=== PATIENT | female | born 1995 | race African-American/Black ===

== ENCOUNTER 2018-10-22 13:38 | Emergency (ER) | payer SELFPAY ==
[~2018-10-22] VITALS: Ht 170.2 cm; Wt 53.7 kg
[2018-10-22 13:38] VITALS: BP 128/79
[~2018-10-22 13:38] MED LIST: ONDA4TAB10 SL; PNV1TABL25 PO
[2018-10-22] MEDS ORDERED: AMOX1TAB61 PO (14:30)
--- NOTE | 2018-10-22 14:30 | PHYS DOC ---
Past History Past Medical History: No Pertinent History Past Surgical History: No Surgical History Smoking: Cigarettes Alcohol Use: Occasionally Drug Use: Marijuana Adult General Chief Complaint Chief Complaint: SORE THROAT HPI HPI Patient is a 23-year-old female who presents with complaint of sore throat, co ugh, sinus pain and congestion as well as purulent nasal drainage. Patient states that symptoms have been going on for the last several days and are progressively getting worse. She is not sure whether or not she has been running a fever. She denies any chest pain or shortness of breath. She states that nothing is improving symptoms.[] Review of Systems Review of Systems Constitutional: Denies fever or chills [] HENT: Complains of sinus congestion, purulent nasal drainage and sore throat [] Respiratory: Complains of cough without shortness of breath [] Cardiovascular: No additional information not addressed in HPI [] Integument: Denies rash or skin lesions [] Allergies Allergies Allergies Coded Allergies Type Severity Reaction Last Updated Verified No Known Drug Allergies 11/29/13 No Physical Exam Physical Exam Constitutional: Well developed, well nourished, no acute distress, non-toxic appearance. [] HENT: Normocephalic, atraumatic, both frontal and maxillary sinuses are tender to palpation and percussion, oropharynx moist. [] Neck: Normal range of motion, no tenderness, supple, no stridor. [] Cardiovascular: Regular rate and rhythm[] Lungs & Thorax: Bilateral breath sounds clear to auscultation [] Extremities: No tenderness, no cyanosis, no clubbing, ROM intact, no edema. [] Current Patient Data Vital Signs Vital Signs Date Time Temp Pulse Resp B/P (MAP) Pulse Ox O2 Delivery O2 Flow Rate FiO2 10/22/18 13:38 98.7 85 28 100 Room Air EKG EKG [] Radiology/Procedures Radiology/Procedures [] Course & Med Decision Making Course & Med Decision Making Pertinent Labs and Imaging studies reviewed. (See chart for details) [] Dragon Disclaimer Dragon Disclaimer This electronic medical record was generated, in whole or in part, using a voice recognition dictation system. Departure Departure: Impression: Primary Impression: Acute sinusitis Disposition: 01 HOME, SELF-CARE Condition: STABLE Referrals: PCP,NO (PCP) Patient Instructions: Form - Excuse from Work, School, or Physical Activity, Sinusitis Scripts Amoxicillin/Potassium Clav (AUGMENTIN 905-125 TABLET) 1 Each Tablet 1 TAB PO BID for INFECTION, #20 TAB Prov: VERONICA TRAYLOR Jr., DO 10/22/18 Problem Qualifiers Primary Impression: Acute sinusitis Sinusitis location: unspecified location Recurrence: not specified as recurrent Qualified Codes: J01.90 - Acute sinusitis, unspecified VERONICA TRAYLOR Jr., DO Oct 22, 2018 14:30
[2018-10-22] MEDS ORDERED: AMOXICILLIN/K CLAV 875/125MG TABLET. PO ONE (14:55)
== END 2018-10-22 14:47 | disposition home or self-care (01) ==
LOC: ER 13:38
DX: J01.90 Acute sinusitis, unspecified (principal); F17.210 Nicotine dependence, cigarettes, uncomplicated
CPT/HCPCS: 87070; 87880; 99283

== ENCOUNTER 2020-03-01 00:55 | Emergency (ER) | payer SELFPAY ==
[~2020-03-01] VITALS: Ht 170.2 cm; Wt 53.7 kg
[~2020-03-01 00:55] MED LIST changes: +AMOX1TAB61 PO
[2020-03-01 01:12] VITALS: BP 129/89
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
[2020-03-01] MEDS ORDERED: ACETAMINOPHEN 500 MG TABLET PO ONE (01:30)
--- NOTE | 2020-03-01 01:53 | RAD ---
INDICATION: Trauma COMPARISON: None. IMPRESSION: Facial bones: 3 views obtained. Frontal and maxillary sinuses appear largely aerated. A definite disp laced fracture is not seen within the limits of plain film. Electronically signed by: Donnie Perez MD (03/01/2020 1:51 AM) [id number]
== END 2020-03-01 02:15 | disposition home or self-care (01) ==
LOC: ER 00:55 → EEVIPCON 00:55 → ER 02:15
DX: S05.42XA Penetrating wound of orbit with or without foreign body, left eye, initial encounter (principal); F17.210 Nicotine dependence, cigarettes, uncomplicated; F12.90 Cannabis use, unspecified, uncomplicated; Y08.89XA Assault by other specified means, initial encounter; Y93.89 Activity, other specified; Y92.89 Other specified places as the place of occurrence of the external cause; Y99.8 Other external cause status
CPT/HCPCS: 12011; 70150; 81025; 99283

== ENCOUNTER → 2020-11-13 | Emergency (ER) | payer OTHER ==
[~2020-11-13] VITALS: Ht 170.2 cm; Wt 53.3 kg
[~2020-11-13] MED LIST changes: +HYDROcodone/APAP 5/325MG 1 TAB TABLET PO ONE
--- NOTE | 2020-11-13 10:57 | PHYS DOC ---
Past History Past Medical History: No Pertinent History (CHRISTIAN ATKINS WILDLIFE TECHNICIAN) Past Surgical History: No Surgical History (CHRISTIAN ATKINS WILDLIFE TECHNICIAN) Smoking: Cigarettes Alcohol Use: None Drug Use: Marijuana Social History Narrative: last noc (CHRISTIAN ATKINS APRN) Adult General Chief Complaint Chief Complaint: VAGINAL BLEEDING HPI HPI Patient is a 25-year-old female who presents to the emergency department complaining of brown spotting vaginally on pad she noticed this morning. Millie ricks reports last menstrual cycle of September 13 with normal duration of flow, missed October menstrual cycle. Took a home test on October 28, 2020 and noticed a very light line that confirmed , contacted DRAINAGE INSPECTOR in [facility] for an appointment, was told to call back and make an appointment at the end of November. Patient has been 3 times in the past, has 2 living children, reports her last ended in miscarriage at 7 months gestation. Patient reports this is her normal time to start her menstrual cycle. Patient reports intermittent mild pelvic cramping consistent with her normal menstrual cramps. Patient denies bright red vaginal bleeding. Patient states when she wiped this morning after urinating she noticed light pink tinge on the paper and placed a feminine hygiene pad in which she later noticed light brown spotting. Patient is concerned that she might not be and did not read her home test correctly. Patient denies vaginal discharge, vaginal lesions, rashes to her vagina area, denies STI concerns. Denies nausea, vomiting, diarrhea, or abdominal pain at this time. Patient reports she is not having any bleeding or any vaginal or lower abdominal symptoms at this time. Patient denies recent fever or chills. Denies other physical complaints or physical concerns. (CHRISTIAN ATKINS WILDLIFE TECHNICIAN) Review of Systems Review of Systems 14 body systems of review of systems have been reviewed. See HPI for pertinent positives and negative responses, otherwise all other systems are negative, nonpertinent or noncontributory. Constitutional: Negative except as outlined in HPI above. Skin: Negative except as outlined in HPI above. Eyes: Negative except as outlined in HPI above. HENT: Negative except as outlined in HPI above. Respiratory: Negative except as outlined in HPI above. Cardiovascular: Negative except as outlined in HPI above. GI: Negative except as outlined in HPI above. : Negative except as outlined in HPI above. Musculoskeletal: Negative except as outlined in HPI above. Integument: Negative except as outlined in HPI above. Neurologic: Negative except as outlined in HPI above. Endocrine: Negative except as outlined in HPI above. Lymphatic: Negative except as outlined in HPI above. Psychiatric: Negative except as outlined in HPI above. (CHRISTIAN ATKINS APRN) Current Medications Current Medications Current Medications Medications (Trade) Dose Ordered Sig/Smiley Start Time Stop Time Status Last Admin Dose Admin Acetaminophen/ Hydrocodone Bitart (Lortab 5/325) 1 tab 1X ONCE 11/13/20 10:30 11/13/20 10:28 DC (CHRISTIAN ATKINS APRN) Allergies Allergies Allergies Coded Allergies Type Severity Reaction Last Updated Verified No Known Drug Allergies 11/13/20 No (CHRISTIAN ATKINS APRN) Physical Exam Physical Exam Constitutional: Well developed, well nourished, no acute distress, non-toxic appearance. 25-year-old female in no apparent distress. HENT: Normocephalic, atraumatic. Eyes: Conjunctiva normal, no discharge. Neck: Normal range of motion. Cardiovascular: Distal cap refill less than 2 seconds, no cyanosis appreciated. Lungs & Thorax: Patient is in no respiratory distress, no adventitious lung sounds appreciated. Abdomen: Bowel sounds normal, soft, no tenderness, no masses, no pulsatile masses. No bruising or skin discoloration of the abdomen. Skin: Warm, dry, no erythema, no rash. Back: No tenderness, no CVA tenderness. Extremities: No tenderness, no cyanosis, no clubbing, ROM intact, no edema. Neurologic: Alert and oriented X 3, normal motor function, normal sensory function, no focal deficits noted. Psychologic: Affect normal, judgement normal, mood normal. : examination deferred at this time related to patient reporting no vaginal bleeding or vaginal discharge or pelvic pain or other pelvic complaints at this time, will defer until confirmation of , urinalysis assay. (CHRISTIAN ATKINS APRN) Current Patient Data Vital Signs Vital Signs Date Time Temp Pulse Resp B/P (MAP) Pulse Ox O2 Delivery O2 Flow Rate FiO2 11/13/20 09:49 98.3 64 18 120/63 100 Room Air Lab Results Laboratory Tests Test 11/13/20 10:15 POC Urine HCG, Qualitative hcg negative (Negative) (CHRISTIAN ATKINS APRN) EKG EKG [] (CHRISTIAN ATKINS APRN) Radiology/Procedures Radiology/Procedures [] (CHRISTIAN ATKINS APRN) Heart Score C/O Chest Pain: No Risk Factors: Risk Factors: DM, Current or recent (<one month) smoker, HTN, HLP, family history of CAD, obesity. Risk Scores: Risk Factors: DM, Current or recent (<one month) smoker, HTN, HLP, family history of CAD, obesity. (CHRISTIAN ATKINS APRN) Course & Med Decision Making Course & Med Decision Making Pertinent Labs and Imaging studies reviewed. (See chart for details) 25-year-old female, vital signs reviewed, presents emergency department concerning vaginal bleeding with . Physical examination is unremarkable, after extensive detail interview of events, will order urinalysis assay and urine test to confirm prior to proceeding with further testing. Patient is amenable to ED planning. The patient is not per POC urine test. Awaiting urinalysis assay results at this time. Working diagnosis most likely normal menses versus abnormal cycles. Patient urine is not infected, discussed findings with patient, discussed abnormal menses with patient, follow-up with INSTRUMENT MAINTENANCE SUPERVISOR specialty soon, patient is amenable to ED discharge planning. Discussed with the patient all findings and diagnostic testing as well as the need to follow-up with their primary care provider for further evaluation and treatment or return to the ED if any new or worsening symptoms. Strict return precautions were also discussed at length, the patient voiced understanding and agreement with the discharge planning. The patient was nontoxic in appearance, in no apparent distress, and hemodynamically stable at the time of disposition. (CHRISTIAN ATKINS APRN) Dragon Disclaimer Dragon Disclaimer This electronic medical record was generated, in whole or in part, using a voice recognition dictation system. (CHRISTIAN ATKINS APRN) Attending Co-Sign The patient was seen and interviewed as well as examined at the bedside. The chart was reviewed. The case was discussed. Agree with the plan of care. The patient's chart at time of signing states that she has . This is not accurate. The patient was discharged in good condition. (LEÓN KELSEY DO) Departure Departure: Impression: Primary Impression: Abnormal menstrual cycle Disposition: HOME / SELF CARE / HOMELESS Condition: GOOD Referrals: PCP,NO (PCP) Patient Instructions: Abnormal Uterine Bleeding Additional Instructions: You were seen today in the emergency department concerning vaginal spotting during . Your urine test was negative. You are not . I suspect your symptoms are related to an abnormal uterine bleeding. There are times when a period can be missed without apparent cause, please follow-up with your DRAINAGE INSPECTOR for ongoing abnormal periods. Please return to the emergency department for worsening symptoms or other concerns. You do have a urine test pending in the lab, if there are any concerning findings I will call you on the number you left with the office automation clerk. Thank you for visiting our Emergency Department. It was a pleasure taking care of you today in the emergency department and we appreciate you trusting us with your care. If any additional problems come up don't hesitate to return to visit us. Please follow up with your primary care provider so they can plan additional care if needed and know about the problem that you had. If symptoms worsen come back to the Emergency Department. Any concerning symptoms that start such as chest pain, shortness of air, weakness or numbness on one side of the body, running high fevers or any other concerning symptoms return to the ER. CHRISTIAN ATKINS APRN Nov 13, 2020 10:57 LEÓN KELSEY DO Nov 14, 2020 06:06
[2020-11-13 11:34] VITALS: BP 136/66
[2020-11-13 11:55] LABS: BACTERIA,URINE 0 /HPF (0-FEW); BILIRUBIN,URINE NEG (NEG); CLARITY,URINE CLEAR; COLOR,URINE YELLOW; GLUCOSE,URINE NEG (NEG); NITRITE,URINE NEG (NEG); SQUAMOUS EPITHELIAL CELL,UR MANY /LPF; UROBILINOGEN,URINE 0.2 mg/dL (0.2 mg/dL)
== END | disposition home or self-care (01) ==
LOC: ER 09:39
DX: N92.1 Excessive and frequent menstruation with irregular cycle (principal); F17.210 Nicotine dependence, cigarettes, uncomplicated
CPT/HCPCS: 81001; 81025; 87086; 99283

== ENCOUNTER 2021-05-21 14:30 | Emergency (ER) | payer OTHER ==
[~2021-05-21] VITALS: Ht 170.2 cm; Wt 53.7 kg
[~2021-05-21 14:30] MED LIST changes: -HYDROcodone/APAP 5/325MG 1 TAB TABLET PO ONE
[2021-05-21] MEDS ORDERED: IV NORMAL SALINE 1,000ML 1,000 ML IV ONE (14:45)
[2021-05-21] MEDS ORDERED: ONDANSETRON PF 4 MG/2 ML VIAL. IVP ONE (14:45)
[2021-05-21 15:47] LABS: BASO % 0 % (0-3); EOS # 0.1 x10^3/uL (0.0-0.7); EOS % 1 % (0-3); HEMATOCRIT 37.8 % (36.0-47.0); HEMOGLOBIN 13.1 g/dL (12.0-15.5); LYMPH # 1.2 x10^3/uL (1.0-4.8); LYMPH % 13 % (24-48); MEAN CORPUSCULAR HEMOGLOBIN 33 pg (25-35); MEAN CORPUSCULAR HGB CONC 35 g/dL (31-37); MEAN CORPUSCULAR VOLUME 95 fL (79-100); MONO # 0.7 x10^3/uL (0.0-1.1); MONO % 7 % (0-9); NEUT # 7.3 x10^3uL (1.8-7.7); NEUT % 78 % (31-73); PLATELET COUNT 238 x10^3/uL (140-400); RED BLOOD COUNT 3.96 x10^6/uL (3.50-5.40); RED CELL DISTRIBUTION WIDTH 13.1 % (11.5-14.5); WHITE BLOOD COUNT 9.3 x10^3/uL (4.0-11.0)
[2021-05-21 15:51] LABS: CREATININE 0.8 mg/dL (0.6-1.0); GFR 104.9; POTASSIUM 3.8 mmol/L (3.5-5.1)
[2021-05-21 15:55] LABS: BARBITURATES NEG (NEG); BENZODIAZEPINES NEG (NEG); CANNABINOIDS POS (NEG); COCAINE NEG (NEG); METHADONE NEG (NEG); OPIATES NEG (NEG); PHENCYCLIDINE NEG (NEG)
[2021-05-21 15:56] LABS: AMPHETAMINE/METHAMPHETAMINE NEG (NEG)
[2021-05-21 15:56] LABS: ALBUMIN/GLOBULIN RATIO 1.3 (1.0-1.7); TOTAL BILIRUBIN 0.5 mg/dL (0.2-1.0); TOTAL PROTEIN 7.1 g/dL (6.4-8.2)
[2021-05-21 16:02] LABS: BACTERIA,URINE FEW /HPF (0-FEW); CLARITY,URINE HAZY; COLOR,URINE YELLOW; GLUCOSE,URINE NEG (NEG); NITRITE,URINE NEG (NEG); RBC,URINE 20-40 /HPF (0-2); SQUAMOUS EPITHELIAL CELL,UR MOD /LPF
[2021-05-21] MEDS ORDERED: ONDA4TAB12 PO (16:14)
--- NOTE | 2021-05-21 16:14 | PHYS DOC ---
Past History Past Medical History: No Pertinent History Past Surgical History: No Surgical History Smoking: Cigarettes Alcohol Use: None Drug Use: Marijuana General Adult EDM: Chief Complaint: VOMITING IN HPI: HPI: 26-year-old female who is 6 weeks presents with vomiting and diarrhea. She has had vomiting diarrhea for several days. She states that she tends to take 4 naps a day and each time she wakes up she has to vomit diarrhea. She does not have an OB appointment for at least several more days and decided she should come in for evaluation. She is able to eat and drink between episodes. She has not started her prenatals yet. She denies fever or chills. Review of Systems: Review of Systems: Constitutional: Denies fever or chills Eyes: Denies change in visual acuity HENT: Denies nasal congestion or sore throat Respiratory: Denies cough or shortness of breath Cardiovascular: Denies chest pain or edema GI: Nausea, vomiting, diarrhea. : Denies dysuria Musculoskeletal: Denies back pain or joint pain Integument: Denies rash Neurologic: Denies headache, focal weakness or sensory changes Endocrine: Denies polyuria or polydipsia Lymphatic: Denies swollen glands Psychiatric: Denies depression or anxiety Current Medications: Current Meds: Current Medications Medications (Trade) Dose Ordered Sig/Smiley Start Time Stop Time Status Last Admin Dose Admin Diphenhydramine HCl (Benadryl) 25 mg 1X ONCE 05/21/21 16:15 05/21/21 16:16 Ondansetron HCl (Zofran) 4 mg 1X ONCE 05/21/21 14:45 05/21/21 14:59 DC 05/21/21 15:25 4 MG Sodium Chloride 1,000 ml @ 1,000 mls/hr 1X ONCE 05/21/21 14:45 05/21/21 15:44 DC 05/21/21 15:26 1,000 MLS/HR Allergies: Allergies: Allergies Coded Allergies Type Severity Reaction Last Updated Verified No Known Drug Allergies 11/13/20 No Physical Exam: PE: Constitutional: Well developed, well nourished, no acute distress, non-toxic appearance. [] HENT: Normocephalic, atraumatic, bilateral external ears normal, oropharynx moist, no oral exudates, nose normal. [] Eyes: PERRLA, EOMI, conjunctiva normal, no discharge. [] Neck: Normal range of motion, no tenderness, supple, no stridor. [] Cardiovascular: Heart rate regular rhythm, no murmur [] Lungs & Thorax: Bilateral breath sounds clear to auscultation [] Abdomen: Bowel sounds normal, soft, no tenderness, no masses, no pulsatile masses. [] Skin: Warm, dry, no erythema, no rash. [] Back: No tenderness, no CVA tenderness. [] Extremities: No tenderness, no cyanosis, no clubbing, ROM intact, no edema. [] Neurologic: Alert and oriented X 3, normal motor function, normal sensory function, no focal deficits noted. [] Psychologic: Affect normal, judgement normal, mood normal. [] Current Patient Data: Labs: Laboratory Tests Test 05/21/21 15:15 05/21/21 15:25 Urine Collection Type Unknown Urine Color Yellow Urine Clarity Hazy Urine pH 7.0 Urine Specific [place] >=1.030 Urine Protein 100 mg/dl (NEG-TRACE) Urine Glucose (UA) Neg mg/dL (NEG) Urine Ketones (Stick) 40 mg/dL (NEG) Urine Blood Mod (NEG) Urine Nitrite Neg (NEG) Urine Bilirubin Small (NEG) Urine Urobilinogen Dipstick 1.0 mg/dL (0.2 mg/dL) Urine Leukocyte Esterase Trace (NEG) Urine RBC 20-40 /HPF (0-2) Urine WBC 5-10 /HPF (0-4) Urine Squamous Epithelial Cells Mod /LPF Urine Bacteria Few /HPF (0-FEW) Urine Mucus Mod /LPF Urine Opiates Screen Neg (NEG) Urine Methadone Screen Neg (NEG) Urine Barbiturates Neg (NEG) Urine Phencyclidine Screen Neg (NEG) Urine Amphetamine/Methamphetamine Neg (NEG) Urine Benzodiazepines Screen Neg (NEG) Urine Cocaine Screen Neg (NEG) Urine Cannabinoids Screen Pos (NEG) Urine Ethyl Alcohol Neg (NEG) White Blood Count 9.3 x10^3/uL (4.0-11.0) Red Blood Count 3.96 x10^6/uL (3.50-5.40) Hemoglobin 13.1 g/dL (12.0-15.5) Hematocrit 37.8 % (36.0-47.0) Mean Corpuscular Volume 95 fL (79-100) Mean Corpuscular Hemoglobin 33 pg (25-35) Mean Corpuscular Hemoglobin Concent 35 g/dL (31-37) Red Cell Distribution Width 13.1 % (11.5-14.5) Platelet Count 238 x10^3/uL (140-400) Neutrophils (%) (Auto) 78 % (31-73) H Lymphocytes (%) (Auto) 13 % (24-48) L Monocytes (%) (Auto) 7 % (0-9) Eosinophils (%) (Auto) 1 % (0-3) Basophils (%) (Auto) 0 % (0-3) Neutrophils # (Auto) 7.3 x10^3uL (1.8-7.7) Lymphocytes # (Auto) 1.2 x10^3/uL (1.0-4.8) Monocytes # (Auto) 0.7 x10^3/uL (0.0-1.1) Eosinophils # (Auto) 0.1 x10^3/uL (0.0-0.7) Basophils # (Auto) 0.0 x10^3/uL (0.0-0.2) POC Urine HCG, Qualitative hcg positive (Negative) Sodium Level 134 mmol/L (136-145) L Potassium Level 3.8 mmol/L (3.5-5.1) Chloride Level 102 mmol/L (98-107) Carbon Dioxide Level 26 mmol/L (21-32) Anion Gap 6 (6-14) Blood Urea Nitrogen 11 mg/dL (7-20) Creatinine 0.8 mg/dL (0.6-1.0) Estimated GFR (Cockcroft-Gault) 104.9 BUN/Creatinine Ratio 14 (6-20) Glucose Level 84 mg/dL (70-99) Calcium Level 9.0 mg/dL (8.5-10.1) Total Bilirubin 0.5 mg/dL (0.2-1.0) Aspartate Amino Transferase (AST) 14 U/L (15-37) L Alanine Aminotransferase (ALT) 17 U/L (14-59) Alkaline Phosphatase 59 U/L (46-116) Total Protein 7.1 g/dL (6.4-8.2) Albumin 4.0 g/dL (3.4-5.0) Albumin/Globulin Ratio 1.3 (1.0-1.7) Vital Signs: Vital Signs Date Time Temp Pulse Resp B/P (MAP) Pulse Ox O2 Delivery O2 Flow Rate FiO2 05/21/21 14:56 98.4 66 18 122/68 (86) 100 EKG: EKG: [] Radiology/Procedures: Radiology/Procedures: [] Heart Score: C/O Chest Pain: N/A Risk Factors: Risk Factors: DM, Current or recent (<one month) smoker, HTN, HLP, family history of CAD, obesity. Risk Scores: Score 0 - 3: 2.5% MACE over next 6 weeks - Discharge Home Score 4 - 6: 20.3% MACE over next 6 weeks - Admit for Clinical Observation Score 7 - 10: 72.7% MACE over next 6 weeks - Early Invasive Strategies Course & Med Decision Making: Course & Med Decision Making Pertinent Labs and Imaging studies reviewed. (See chart for details) The patient has been given a liter normal saline and 4 mg of Zofran. She still a bit nauseous I will add 25 mg of Benadryl. I have encouraged her to keep her OB appointment as soon as possible. The patient is positive for marijuana. This certainly could be contributing to her vomiting. I have told the patient she needs to stop using. The patient's urinalysis is borderline for infection. I will treat her with Keflex for 3 days. She is stable for discharge at this time. [] Franklin Disclaimer: Franklin Disclaimer: This electronic medical record was generated, in whole or in part, using a voice recognition dictation system. Departure Departure: Impression: Primary Impression: Vomiting affecting Additional Impression: UTI (urinary tract infection) Qualified Codes: N30.01 - Acute cystitis with hematuria Disposition: HOME / SELF CARE / HOMELESS Condition: STABLE Referrals: PCP,NO (PCP) Patient Instructions: - Second Trimester, [id number], - Urinary Tract Infection Scripts Cephalexin (CEPHALEXIN) 500 Mg Tablet 1 TAB PO TID for UTI for 3 Days, #9 TAB Prov: LEÓN KELSEY DO 05/21/21 Ondansetron (ONDANSETRON ODT) 4 Mg Tab.rapdis 1 TAB PO PRN Q6-8HRS PRN for VOMITING, #16 TAB Prov: LEÓN KELSEY DO 05/21/21 LEÓN KELSEY DO May 21, 2021 16:14
[2021-05-21] MEDS ORDERED: diphenhydrAMINE 50 MG/ML VIAL IVP ONE (16:15)
[2021-05-21 16:57] VITALS: BP 110/52
[2021-05-21] MEDS ORDERED: CEPH500T PO (17:07)
[2021-05-21] MEDS ORDERED: CEPHALEXIN 250 MG CAPSULE PO ONE (17:15)
== END 2021-05-21 17:12 | disposition home or self-care (01) ==
LOC: ER 14:30
DX: O23.41 Unspecified infection of urinary tract in pregnancy, first trimester (principal); N39.0 Urinary tract infection, site not specified; O21.9 Vomiting of pregnancy, unspecified; O99.331 Smoking (tobacco) complicating pregnancy, first trimester; Z3A.01 Less than 8 weeks gestation of pregnancy
CPT/HCPCS: 36415; 80053; 80307; 81001; 81025; 85025; 87086; 96361; 96374; 96375; 99284; J1200; J2405; J7030

== ENCOUNTER 2021-05-26 10:23 | Emergency (ER) | payer OTHER ==
[~2021-05-26] VITALS: Ht 170.2 cm; Wt 53.7 kg
[~2021-05-26 10:23] MED LIST changes: +CEPH500T PO; +ONDA4TAB12 PO
[2021-05-26] MEDS ORDERED: ONDANSETRON PF 4 MG/2 ML VIAL. IVP ONE ×2 (11:00→13:00)
[2021-05-26] MEDS ORDERED: IV NORMAL SALINE 1,000ML 1,000 ML IV SCH (11:00)
--- NOTE | 2021-05-26 11:13 | PHYS DOC ---
Past History Past Medical History: No Pertinent History (TANIA FERRER APRN) Past Surgical History: No Surgical History (TANIA FERRER APRN) Smoking: Cigarettes Alcohol Use: None Drug Use: Marijuana (TANIA FERRER APRN) General Adult EDM: Chief Complaint: NAUSEA/VOMITING/DIARRHEA HPI: HPI: Patient is a 26-year-old female who presents to the emergency department with a 2-week history of nausea, vomiting and diarrhea. Patient was seen in this emergency department on May 21 and diagnosed with a urinary tract infection and discharged home with an antibiotic and nausea medication. She is reports that she has been taking Zofran at home without any relief in her vomiting. Patient states that she finished her antibiotic today. Patient is still reporting dysuria. She is also complaining of suprapubic pain. Patient is approximately 7 weeks . Last menstrual period was April 06. Patient has no OB care yet. She is . Patient denies any blood in her stools or vomit, vaginal bleeding, vaginal discharge, sick exposures, fevers. (TANIA FERRER APRN) Review of Systems: Review of Systems: Constitutional: See HPI GI: See HPI : See HPI (TANIA FERRER APRN) Current Medications: Current Meds: Current Medications Medications (Trade) Dose Ordered Sig/Smiley Start Time Stop Time Status Last Admin Dose Admin Ondansetron HCl (Zofran) 4 mg 1X ONCE 05/26/21 11:00 05/26/21 11:10 DC Sodium Chloride 1,000 ml @ 1,000 mls/hr Q1H 05/26/21 11:00 05/26/21 11:59 (TANIA FERRER APRN) Allergies: Allergies: Allergies Coded Allergies Type Severity Reaction Last Updated Verified No Known Drug Allergies 11/13/20 No (TANIA FERRER APRN) Physical Exam: PE: Constitutional: Well developed, well nourished, no acute distress, non-toxic appearance. [] HENT: Normocephalic, atraumatic, bilateral external ears normal, oropharynx moist, no oral exudates, nose normal. [] Eyes: PERRL, EOMI, conjunctiva normal, no discharge. [] Neck: Normal range of motion, no stridor Cardiovascular:Heart rate regular rhythm, no murmur [] Lungs & Thorax: Bilateral breath sounds clear to auscultation [] Abdomen: Bowel sounds normal, soft, suprapubic tenderness with palpation, no abdominal guarding or rigidity, no masses, no pulsatile masses. [] Skin: Warm, dry, no erythema, no rash. [] Back: No tenderness, no CVA tenderness. [] Extremities: No tenderness, no cyanosis, no clubbing, ROM intact, no edema. [] Neurologic: Alert and oriented X 3, normal motor function, normal sensory function, no focal deficits noted. [] Psychologic: Affect normal, judgement normal, mood normal. [] (TANIA FERRER APRN) Current Patient Data: Labs: Laboratory Tests Test 05/26/21 10:52 White Blood Count 7.7 x10^3/uL Red Blood Count 4.23 x10^6/uL Hemoglobin 13.7 g/dL Hematocrit 40.1 % Mean Corpuscular Volume 95 fL Mean Corpuscular Hemoglobin 33 pg Mean Corpuscular Hemoglobin Concent 34 g/dL Red Cell Distribution Width 13.1 % Platelet Count 255 x10^3/uL Neutrophils (%) (Auto) 75 % Lymphocytes (%) (Auto) 16 % Monocytes (%) (Auto) 7 % Eosinophils (%) (Auto) 1 % Basophils (%) (Auto) 1 % Neutrophils # (Auto) 5.8 x10^3uL Lymphocytes # (Auto) 1.2 x10^3/uL Monocytes # (Auto) 0.5 x10^3/uL Eosinophils # (Auto) 0.1 x10^3/uL Basophils # (Auto) 0.1 x10^3/uL Sodium Level 136 mmol/L Potassium Level 3.4 mmol/L Chloride Level 100 mmol/L Carbon Dioxide Level 26 mmol/L Anion Gap 10 Blood Urea Nitrogen 10 mg/dL Creatinine 0.8 mg/dL Estimated GFR (Cockcroft-Gault) 104.9 BUN/Creatinine Ratio 13 Glucose Level 89 mg/dL Calcium Level 9.1 mg/dL Total Bilirubin 1.0 mg/dL Aspartate Amino Transf (AST/SGOT) 16 U/L Alanine Aminotransferase (ALT/SGPT) 19 U/L Alkaline Phosphatase 60 U/L Total Protein 7.4 g/dL Albumin 4.2 g/dL Albumin/Globulin Ratio 1.3 Lipase 602 U/L Current Medications Medications (Trade) Dose Ordered Sig/Smiley Route PRN Reason Start Time Stop Time Status Last Admin Dose Admin Sodium Chloride 1,000 ml @ 1,000 mls/hr Q1H IV 05/26/21 11:00 05/26/21 11:59 DC 05/26/21 11:15 Ondansetron HCl (Zofran) 4 mg 1X ONCE IVP 05/26/21 11:00 05/26/21 11:10 DC 05/26/21 11:16 Lorazepam (Ativan Inj) 1 mg 1X ONCE IVP 05/26/21 11:45 05/26/21 12:13 DC Vital Signs: Vital Signs Date Time Temp Pulse Resp B/P (MAP) Pulse Ox O2 Delivery O2 Flow Rate FiO2 05/26/21 10:42 98.3 63 16 120/75 (90) 99 Room Air (TANIA FERRER APRN) EKG: EKG: [] (TANIA FERRER APRN) Radiology/Procedures: Radiology/Procedures: []PROCEDURE: ABDOMEN OR LWR BACK LTD INDICATION: Reason: elevated lipase, r/o pancreatitis / Spl. Instructions: / History: COMPARISON: None. TECHNIQUE: Grayscale and color ultrasound images obtained through the abdomen. FINDINGS: Pancreas: Partially seen. A portion of it appears mildly hypoechoic. Liver: Echotexture within normal limits. Gallbladder: No definite stones or wall thickening. Common Bile Duct: Not dilated. Right Kidney: No hydronephrosis. The kidney appears hypervascular. Aorta/IVC: Visualized portion unremarkable. IMPRESSION: * The right kidney appears hypervascular. Would correlate with symptoms to ensure this is not from a pathologic cause such as urinary tract infection. * Portion of the pancreas appears mildly hypoechoic. Causes such as pancr eatitis not excluded. Electronically signed by: Lasha Cordova MD (05/26/2021 12:35 PM) [id number] DICTATED AND SIGNED BY: LASHA CORDOVA MD DATE: 05/26/21 1232 CC: LEÓN KELSEY DO; TANIA FERRER APRN; PCP,NO ~MTH0 0 PROCEDURE: PREG 1ST TRIMESTER EXAM: Obstetrics sonogram. HISTORY: Pain in . TECHNIQUE: Sonographic imaging of the pelvis was performed. COMPARISON: None. FINDINGS: The uterus measures 10.4 x 6.8 x 5.8 cm. The cervix is closed and measures 2.6 cm in length. There is a single intrauterine gestational sac with pole. The crown-rump length is 10 mm, corresponding with a gestational age of 7 weeks and 1 day and due date of 01/11/2022. There is a normal heart rate of 149 bpm. There is a normal-appearing yolk sac. The gestational sac is normal in position and configuration. The ovaries are normal in size and demonstrate normal blood flow. There is a tiny suspected involuting right corpus luteum cyst. There is no pelvic free fluid. IMPRESSION: 1. Single intrauterine fetus with normal heart rate and gestational age based on ultrasound measurements of 7 weeks and 1 day. 2. Tiny suspected involuting left corpus luteum cyst. Electronically signed by: Dunia Vega MD (05/26/2021 11:27 AM) [id number] DICTATED AND SIGNED BY: DUNIA VEGA MD DATE: 05/26/21 1126 CC: TANIA FERRER APRN; PCP,NO ~MTH0 0 (TANIA FERRER APRN) Heart Score: C/O Chest Pain: N/A Risk Factors: Risk Factors: DM, Current or recent (<one month) smoker, HTN, HLP, family history of CAD, obesity. Risk Scores: Score 0 - 3: 2.5% MACE over next 6 weeks - Discharge Home Score 4 - 6: 20.3% MACE over next 6 weeks - Admit for Clinical Observation Score 7 - 10: 72.7% MACE over next 6 weeks - Early Invasive Strategies (TANIA FERRER APRN) Course & Med Decision Making: Course & Med Decision Making Pertinent Labs and Imaging studies reviewed. (See chart for details) [] Patient presents to the emergency department with nausea, vomiting, diarrhea and . She is also reporting dysuria and suprapubic pain. Patient finished her antibiotic today for UTI. Work-up in the emergency department consisted of blood work, urinalysis, UDS, ultrasound. Patient treated with IV fluids, nausea medication. CBC unremarkable. Patient's pelvic ultrasound showed a intrauterine gestation at 7 weeks and 1 day with a heart rate of 149 bpm with good blood flow to bilateral ovaries and an involuting corpus luteum cyst. Is possible that this was the cause of her pain. Patient's lipase is 602. Therefore a ultrasound of her pancreas was performed. Ultrasound of her pancreas shows hypoechoic area on the pancreas and pancreatitis cannot be excluded per the radiologist. I dis cussed this case with supervising physician. Patient will be treated with IV fluids, nausea medication. Patient will need to be admitted for IV fluids and antibiotics. I will transfer this patient to [facility] where they have GI and [facility]. I discussed patient's case with Dr. Baltazar Who agreed to admit the patient under his services. I discussed patient's findings with her and she is agreeable to care plan. [id number] (TANIA FERRER APRN) Dragon Disclaimer: Dragon Disclaimer: This electronic medical record was generated, in whole or in part, using a voice recognition dictation system. (TANIA FERRER APRN) Attending Co-Sign The patient was seen and interviewed as well as examined at the bedside. The chart was reviewed. The case was discussed. Agree with the plan of care. (LEÓN KELSEY DO) Departure Departure: Impression: Primary Impression: Pancreatitis Qualified Codes: K85.90 - Acute pancreatitis without necrosis or infection, unspecified Disposition: 02 SHORT TERM HOSPITAL Condition: GOOD Referrals: PCP,NO (PCP) TANIA FERRER APRN May 26, 2021 11:13 LEÓN KELSEY DO May 28, 2021 09:09
[2021-05-26 11:19] LABS: BASO # 0.1 x10^3/uL (0.0-0.2); BASO % 1 % (0-3); EOS # 0.1 x10^3/uL (0.0-0.7); EOS % 1 % (0-3); HEMATOCRIT 40.1 % (36.0-47.0); HEMOGLOBIN 13.7 g/dL (12.0-15.5); LYMPH # 1.2 x10^3/uL (1.0-4.8); LYMPH % 16 % (24-48); MEAN CORPUSCULAR HEMOGLOBIN 33 pg (25-35); MEAN CORPUSCULAR HGB CONC 34 g/dL (31-37); MEAN CORPUSCULAR VOLUME 95 fL (79-100); MONO # 0.5 x10^3/uL (0.0-1.1); MONO % 7 % (0-9); NEUT # 5.8 x10^3uL (1.8-7.7); NEUT % 75 % (31-73); PLATELET COUNT 255 x10^3/uL (140-400); RED BLOOD COUNT 4.23 x10^6/uL (3.50-5.40); RED CELL DISTRIBUTION WIDTH 13.1 % (11.5-14.5); WHITE BLOOD COUNT 7.7 x10^3/uL (4.0-11.0)
[2021-05-26 11:22] LABS: CALCIUM 9.1 mg/dL (8.5-10.1); CREATININE 0.8 mg/dL (0.6-1.0); GFR 104.9; POTASSIUM 3.4 mmol/L (3.5-5.1)
[2021-05-26 11:29] LABS: ALBUMIN 4.2 g/dL (3.4-5.0); ALBUMIN/GLOBULIN RATIO 1.3 (1.0-1.7); TOTAL PROTEIN 7.4 g/dL (6.4-8.2)
--- NOTE | 2021-05-26 11:30 | RAD ---
EXAM: Obstetrics sonogram. HISTORY: Pain in . TECHNIQUE: Sonographic imaging of the pelvis was performed. COMPARISON: None. FINDINGS: The uterus measures 10.4 x 6.8 x 5.8 cm. The cervix is closed and measures 2.6 cm in length . There is a single intrauterine gestational sac with pole. The crown-rump length is 10 m m, corresponding with a gestational age of 7 weeks and 1 day and due date of 01/11/2022. There is a n ormal heart rate of 149 bpm. There is a normal-appearing yolk sac. The gestational sac is endy l in position and configuration. The ovaries are normal in size and demonstrate normal blood flow. Th ere is a tiny suspected involuting right corpus luteum cyst. There is no pelvic free fluid. IMPRESSION: 1. Single intrauterine fetus with normal heart rate and gestational age based on ultrasound measureme nts of 7 weeks and 1 day. 2. Tiny suspected involuting left corpus luteum cyst. Electronically signed by: Dunia Villareal MD (05/26/2021 11:27 AM) [id number]
--- NOTE | 2021-05-26 12:38 | RAD ---
INDICATION: Reason: elevated lipase, r/o pancreatitis / Spl. Instructions: / History: COMPARISON: None. TECHNIQUE: Grayscale and color ultrasound images obtained through the abdomen. FINDINGS: Pancreas: Partially seen. A portion of it appears mildly hypoechoic. Liver: Echotexture within normal limits. Gallbladder: No definite stones or wall thickening. Common Bile Duct: Not dilated. Right Kidney: No hydronephrosis. The kidney appears hypervascular. Aorta/IVC: Visualized portion unremarkable. IMPRESSION: * The right kidney appears hypervascular. Would correlate with symptoms to ensure this is not from a pathologic cause such as urinary tract infection. * Portion of the pancreas appears mildly hypoechoic. Causes such as pancreatitis not excluded. Electronically signed by: Donnie Perez MD (05/26/2021 12:35 PM) [id number]
[2021-05-26] MEDS ORDERED: PIP/TAZO PER PHARMACY MC PRN (13:00)
[2021-05-26] MEDS ORDERED: IV NORMAL SALINE 1,000ML 1,000 ML IV ONE (13:00)
[2021-05-26 13:01] LABS: BARBITURATES NEG (NEG); BENZODIAZEPINES NEG (NEG); CANNABINOIDS POS (NEG); COCAINE NEG (NEG); METHADONE NEG (NEG); OPIATES NEG (NEG); PHENCYCLIDINE NEG (NEG)
[2021-05-26 13:02] LABS: AMPHETAMINE/METHAMPHETAMINE NEG (NEG)
[2021-05-26 13:08] LABS: BACTERIA,URINE 0 /HPF (0-FEW); CLARITY,URINE TURBID; COLOR,URINE YELLOW; GLUCOSE,URINE NEG (NEG); NITRITE,URINE NEG (NEG); SQUAMOUS EPITHELIAL CELL,UR MOD /LPF; WBC,URINE 20-40 /HPF (0-4)
[2021-05-26] MEDS ORDERED: IV NORMAL SALINE 50ML 50 ML ONE (13:13)
[2021-05-26] MEDS ORDERED: PIPERACILLIN/TAZOBACTAM 3.375 GM VIAL IV ONE (13:14)
[2021-05-26] MEDS ORDERED: PIPERACILLIN/TAZOBACTAM 3.375 GM in IV NORMAL SALINE 50ML 50 ML IV ONE (13:15)
[2021-05-26 15:14] VITALS: BP 105/66
== END 2021-05-26 15:31 | disposition short-term general hospital (02) ==
LOC: ER 10:23
DX: O26.891 Other specified pregnancy related conditions, first trimester (principal); K85.90 Acute pancreatitis without necrosis or infection, unspecified; O99.331 Smoking (tobacco) complicating pregnancy, first trimester; Z20.822 Contact with and (suspected) exposure to COVID-19; Z3A.01 Less than 8 weeks gestation of pregnancy
CPT/HCPCS: 36415; 76705; 76801; 80053; 80307; 81001; 83690; 85025; 87086; 87426; 96361; 96365; 96375; 96376; 99285; C9803; J2405; J2543; J7030; U0003